=== PATIENT | female | born 1965 | race African-American/Black ===

== ENCOUNTER 2018-04-10 09:31 | Inpatient (IN) | payer OTHER ==
[~2018-04-10] VITALS: Ht 165.1 cm; Wt 81.6 kg
[2018-04-10] MEDS ORDERED: CALCIUM (09:58)
[2018-04-10] MEDS ORDERED: PIPERACILLIN/TAZ 3.375G PREMIX 50 ML IV ONE (10:30)
[2018-04-10] MEDS ORDERED: VANCOMYCIN 1 G PREMIX 200 ML IV ONE (10:30)
[2018-04-10] MEDS ORDERED: SODIUM CHLORIDE 0.9% 1000ML BAG (SEPSIS BOLUS) IV ONE (10:30)
[2018-04-10 11:39] LABS: BASOPHILS % 0.2 % (0.0-2.0); EOSINOPHILS % 0.5 % (0.0-5.0); HEMOGLOBIN. 13.4 g/dL (12.0-16.0); LYMPHOCYTES % 8.7 % (20.0-50.0); MEAN CORPUSCULAR HEMOGLOBIN 28.1 pg (28.0-32.0); MEAN CORPUSCULAR VOLUME 85.9 fL (81.0-99.0); MEAN PLATELET VOLUME 8.6 fl (7.4-10.4); MONOCYTES % 7.1 % (2.0-8.0); NEUTROPHILS % 83.5 % (40.0-76.0); PLATELET 226 x1000/uL (130-400); RED BLOOD CELL COUNT 4.77 mill/uL (4.2-5.4); RED CELL DISTRIBUTION WIDTH 15.5 % (11.6-14.6)
[2018-04-10 11:45] LABS: CHLORIDE 107 mEq/L (98-107); INR 1.1; PROTHROMBIN TIME 10.7 sec (9.1-11.1)
[2018-04-10 11:48] LABS: CLARITY URINE CLOUDY (CLEAR); COLOR URINE YELLOW (YELLOW); KETONES URINE NEGATIVE (NEGATIVE); LEUKOCYTE ESTERASE URINE 1+ (NEGATIVE); NITRITE URINE NEGATIVE (NEGATIVE); OCCULT BLOOD URINE 1+ (NEGATIVE); PROTEIN URINE 1+ (NEGATIVE); SPECIFIC GRAVITY URINE 1.018 (1.005-1.030); UROBILINOGEN URINE 0.2 E.U./dL (0.2-1.0)
[2018-04-10] MEDS ORDERED: MORPHINE SULFATE 4 MG/ML CPJ (NOT FOR IM USE) IV STA (13:11)
[2018-04-10] MEDS ORDERED: ONDANSETRON HCL 4MG/2ML INJ IV STA (13:11)
[2018-04-10] MEDS ORDERED: MORPHINE SULFATE 10 MG/ML CPJ IV NR (13:20)
[2018-04-10 14:30] VITALS: BP 124/85
[2018-04-10] MEDS ORDERED: IOHEXOL-300 100 ML BOTTLE ONE (15:14)
[2018-04-10 16:00] VITALS: BP_SYST 124; BP_SYST 144; BP_DIAS 64; BP_DIAS 85
[2018-04-10] MEDS: KETOROLAC 30MG/ML VIAL IV PRN ×2 (16:45→23:40)
[2018-04-10] MEDS ORDERED: MORPHINE SULFATE 4 MG/ML CPJ (NOT FOR IM USE) IV PRN (16:50)
[2018-04-10] MEDS ORDERED: INFLUENZA VIRUS VACCINE(AFLURIA) 0.5ML SYR IM ONE (17:30)
[2018-04-10] MEDS: SODIUM CHLORIDE 0.9% 1,000 ML IV SCH (18:02)
[2018-04-10] MEDS: PIPERACILLIN/TAZ 3.375G PREMIX 50 ML IV SCH ×2 (18:04→23:39)
[2018-04-10 20:00] VITALS: BP 115/60
[2018-04-10] MEDS: FAMOTIDINE 20MG TABLET PO SCH (20:57)
[2018-04-11 02:00] VITALS: BP 113/56
[2018-04-11] MEDS: SODIUM CHLORIDE 0.9% 1,000 ML IV SCH ×2 (03:36→11:33)
[2018-04-11 04:00] VITALS: BP 105/75
[2018-04-11] MEDS: PIPERACILLIN/TAZ 3.375G PREMIX 50 ML IV SCH ×3 (05:32→17:50)
[2018-04-11 08:00] VITALS: BP 159/75
[2018-04-11] MEDS: KETOROLAC 30MG/ML VIAL IV PRN ×2 (08:52→19:50)
[2018-04-11 12:30] VITALS: BP 160/68
[2018-04-11] MEDS: ACETAMINOPHEN 650MG/20.3ML UDC PO PRN ×2 (13:28→18:36)
[2018-04-11 16:00] VITALS: BP 158/84
[2018-04-11] MEDS ORDERED: VANCOMYCIN 1,750 MG in DEXT 5% WATER 250 ML IV NR (18:00)
[2018-04-11 20:00] VITALS: BP 126/51
[2018-04-11] MEDS: FAMOTIDINE 20MG TABLET PO SCH (20:39)
[2018-04-11] MEDS: PILOCARPINE HCL 5MG TABLET PO SCH (22:00)
[2018-04-12] VITALS: BP 145/79
[2018-04-12] MEDS: ACETAMINOPHEN 650MG/20.3ML UDC PO PRN (00:28)
[2018-04-12] MEDS: SODIUM CHLORIDE 0.9% 1,000 ML IV SCH (00:29)
[2018-04-12] MEDS: PIPERACILLIN/TAZ 3.375G PREMIX 50 ML IV SCH ×3 (00:29→13:33)
[2018-04-12] MEDS: KETOROLAC 30MG/ML VIAL IV PRN ×2 (02:29→10:50)
[2018-04-12 04:00] VITALS: BP 151/82
[2018-04-12] MEDS ORDERED: VANCOMYCIN 750 MG PREMIX 150 ML IV SCH (06:00)
[2018-04-12] MEDS: PILOCARPINE HCL 5MG TABLET PO SCH (06:00)
[2018-04-12 07:33] LABS: BASOPHILS % 0.9 % (0.0-2.0); HEMATOCRIT. 33.5 % (36.0-48.0); LYMPHOCYTES % 27.7 % (20.0-50.0); MEAN CORPUSCULAR HEMOGLOBIN 28.7 pg (28.0-32.0); MEAN CORPUSCULAR VOLUME 87.3 fL (81.0-99.0); MEAN PLATELET VOLUME 8.8 fl (7.4-10.4); MONOCYTES % 9.3 % (2.0-8.0); NEUTROPHILS % 58.1 % (40.0-76.0); PLATELET 187 x1000/uL (130-400); RED BLOOD CELL COUNT 3.84 mill/uL (4.2-5.4); RED CELL DISTRIBUTION WIDTH 15.1 % (11.6-14.6)
[2018-04-12 07:35] LABS: CHLORIDE 111 mEq/L (98-107)
[2018-04-12 08:00] VITALS: BP 156/83
[2018-04-12 12:00] VITALS: BP 104/81
[2018-04-12 15:31] VITALS: BP 104/81
[2018-04-12 16:23] VITALS: BP 155/85
== END 2018-04-12 15:55 | disposition home or self-care (01) | DRG 115 ==
LOC: ER 10:37 → 6EST 13:07 → EDBEDREQ 13:11 → EDBEDREQTM 13:11 → EDBEDREQSVC 13:11 → ENRESERV 13:23
PROVIDERS: ADMIT Internal Medicine; ATTEND Internal Medicine
DX: K11.20 Sialoadenitis, unspecified (principal); R65.10 Systemic inflammatory response syndrome (SIRS) of non-infectious origin without acute organ dysfunction; R13.10 Dysphagia, unspecified; K11.8 Other diseases of salivary glands; K11.5 Sialolithiasis; D72.829 Elevated white blood cell count, unspecified; E66.9 Obesity, unspecified; E78.00 Pure hypercholesterolemia, unspecified; F17.200 Nicotine dependence, unspecified, uncomplicated; Z82.49 Family history of ischemic heart disease and other diseases of the circulatory system; Z90.5 Acquired absence of kidney; Z83.3 Family history of diabetes mellitus; Z68.30 Body mass index [BMI] 30.0-30.9, adult; Z71.6 Tobacco abuse counseling
CPT/HCPCS: 36415; 70491; 71045; 80048; 83605; 84145; 84484; 90686; 93005; 96365; 99285; C1893; J1885; J2270; J2405; J2543; J3370; J7030; J7060; Q9967

== ENCOUNTER 2019-04-01 14:02 | Emergency (ER) | payer OTHER ==
[~2019-04-01] VITALS: Ht 165.1 cm; Wt 92.0 kg
[~2019-04-01 14:02] MED LIST: CALCIUM
[2019-04-01] MEDS ORDERED: IBUPROFEN 400MG TABLET PO ONE (16:15)
[2019-04-01] MEDS ORDERED: CLINDAMYCIN 600 MG in DEXTROSE 5% WATER 50 ML IV ONE (18:30)
[2019-04-01] MEDS ORDERED: CLINDAMYCIN 600MG PREMIX 50 ML IV NR (18:45)
[2019-04-01 18:46] LABS: BASOPHILS % 1.2 % (0.0-2.0); EOSINOPHILS % 3.8 % (0.0-5.0); HEMATOCRIT. 41.3 % (36.0-48.0); HEMOGLOBIN. 13.6 g/dL (12.0-16.0); LYMPHOCYTES % 33.9 % (20.0-50.0); MEAN CORPUSCULAR HEMOGLOBIN 28.7 pg (28.0-32.0); MEAN CORPUSCULAR VOLUME 87.3 fL (81.0-99.0); MEAN PLATELET VOLUME 8.5 fl (7.4-10.4); NEUTROPHILS % 54.1 % (40.0-76.0); PLATELET 187 x1000/uL (130-400); RED BLOOD CELL COUNT 4.73 mill/uL (4.2-5.4)
[2019-04-01 18:47] LABS: PROTHROMBIN TIME 10.5 sec (9.6-11.0)
[2019-04-01 18:49] LABS: CHLORIDE 112 mEq/L (98-107)
[2019-04-01] MEDS ORDERED: MORPHINE SULFATE 2 MG/ML CPJ (NOT FOR IM USE) IV ONE (21:15)
[2019-04-01 21:20] LABS: CLARITY URINE CLEAR (CLEAR); COLOR URINE YELLOW (YELLOW); KETONES URINE NEGATIVE (NEGATIVE); LEUKOCYTE ESTERASE URINE NEGATIVE (NEGATIVE); NITRITE URINE NEGATIVE (NEGATIVE); OCCULT BLOOD URINE NEGATIVE (NEGATIVE); PROTEIN URINE NEGATIVE (NEGATIVE); SPECIFIC GRAVITY URINE 1.021 (1.005-1.030); UROBILINOGEN URINE 0.2 E.U./dL (0.2-1.0)
[2019-04-02] MEDS ORDERED: KETOROLAC 30MG/ML VIAL IV ONE ×2 (00:15→10:30)
[2019-04-02] MEDS ORDERED: ONDANSETRON HCL 4MG/2ML INJ IV ONE (01:30)
[2019-04-02] MEDS ORDERED: MORPHINE SULFATE 4 MG/ML CPJ (NOT FOR IM USE) IV ONE ×2 (01:30→08:15)
[2019-04-02] MEDS ORDERED: CLINDAMYCIN 600 MG in DEXTROSE 5% WATER 50 ML IV ONE (08:15)
[2019-04-02] MEDS ORDERED: CLINDAMYCIN 600MG PREMIX 50 ML IV SCH (08:30)
[2019-04-02 11:30] VITALS: BP 128/73
== END 2019-04-02 11:40 | disposition home or self-care (01) ==
LOC: ER 14:02
DX: K12.2 Cellulitis and abscess of mouth (principal); Z87.42 Personal history of other diseases of the female genital tract
CPT/HCPCS: 36415; 70490; 80053; 81003; 85025; 85610; 96365; 96366; 96375; 96376; 99284; J1885; J2270; J2405; J3490; Z7610; J7060